=== PATIENT | female | born 1970 | race Hispanic/Latino ===

== ENCOUNTER 2017-05-10 23:49 | Emergency (ER) | payer BC ==
[~2017-05-10] VITALS: Ht 154.9 cm; Wt 81.4 kg
[2017-05-11] MEDS ORDERED: LEVOTHYROXIN75 MCG PO (00:03)
[2017-05-11 01:03] LABS: INFLUENZA A NONE DETECTED (NONE DETECT); INFLUENZA B NONE DETECTED (NONE DETECT)
[2017-05-11] MEDS ORDERED: AMOXICILLIN500 MG PO (01:11)
[2017-05-11 01:15] VITALS: BP 128/78
== END 2017-05-11 01:17 | disposition home or self-care (01) | DRG 153 ==
LOC: ED 23:49
PROVIDERS: Emergency Medicine
DX: J02.9 Acute pharyngitis, unspecified (principal); E03.9 Hypothyroidism, unspecified

== ENCOUNTER 2020-12-15 09:23 | Day surgery (SDC) | payer BC ==
[~2020-12-15 09:23] MED LIST: AMOXICILLIN500 MG PO; LEVOTHYROXIN75 MCG PO; LIPITOR20 M1 PO; NAPROXEN250 MG PO
[2020-12-15 12:11] VITALS: BP 111/66
--- NOTE | 2020-12-15 15:26 | NUR ---
PER PHYSICIAN, PATIENT NOTIFIED OF PROCEDURE FINDINGS, PATIENT AGREED WITH INFORMATION PROVIDED. STATES IS DOING WELL, AT HOME RESTING, AND VOICED NO CONCERNS AT TIME OF CALL. WILL FOLLOW UP WITH PRIMARY CARE FOR CONTINUITY OF CARE.
== END 2020-12-15 12:25 | disposition home or self-care (01) | DRG 951 ==
LOC: ENDO 09:23
PROVIDERS: ATTEND Surgery
PROC: 0DJD8ZZ Inspection of Lower Intestinal Tract, Via Natural or Artificial Opening Endoscopic (ICD-10-PCS; principal; 2020-12-15)
DX: Z12.11 Encounter for screening for malignant neoplasm of colon (principal)